=== PATIENT | male | born 1990 | race American Indian/Alaskan Native ===

== ENCOUNTER 2016-10-16 14:57 | Emergency (ER) | payer MEDICAID ==
[2016-10-16 15:05] VITALS: TEMP 98.2; O2SAT 98
--- NOTE | 2016-10-16 15:38 | ED PDOC ---
Arrival/HPI - General Chief Complaint: Flu-like Symptoms Time Seen by Provider: 10/16/16 15:02 Historian: Patient - History of Present Illness Narrative History of Present Illness (Text): 10/16/16 15:35 26yo male with PMhx of HIV present for evaluation. States he has been having intermittent yellow productive cough x 3weeks now. Reports malaise. states he is worried because he stopped taking his antiviral medications for 3-4month secondary to depression and financial issues. He states he plans to go back to his Doctor, but just came to the ED for evaluation. She denied fever, chills, nausea, vomiting, abdominal pain, sick contact, travel, chest pain, any other complaint. He does not know his CD4 count or viral load. Past Medical History - Provider Review Nursing Documentation Reviewed: Yes - Cardiac Hx Cardiac Disorders: No - Pulmonary Hx Respiratory Disorders: No - Neurological Hx Neurological Disorder: No - HEENT Hx HEENT Disorder: No - Renal Hx Renal Disorder: No - Endocrine/Metabolic Hx Endocrine Disorders: No - Integumentary Hx Dermatological Disorder: No - Musculoskeletal/Rheumatological Hx Musculoskeletal Disorders: No - Gastrointestinal Hx Gastrointestinal Disorders: No - Genitourinary/Gynecological Other/Comment: TESTICULAR SURGERY - Psychiatric Hx Psychophysiologic Disorder: No Hx Substance Use: No Family/Social History - Physician Review Nursing Documentation Reviewed: Yes Family/Social History: Unknown Family HX Smoking Status: Heavy Smoker > 10 Cigarettes Daily Hx Alcohol Use: No Hx Substance Use: No Allergies/Home Meds Allergies/Adverse Reactions: Allergies No Known Allergies Allergy (Verified 10/16/16 15:00) Review of Systems - Physician Review All systems were reviewed & negative as marked: Yes - Review of Systems Constitutional: Fatigue Eyes: Normal ENT: Normal Respiratory: Cough. absent: SOB, Sputum, Wheezing Cardiovascular: Normal Gastrointestinal: Normal Genitourinary Male: Normal Musculoskeletal: Normal Skin: Normal Neurological: Normal Endocrine: Normal Hemo/Lymphatic: Normal Psychiatric: Normal Physical Exam Vital Signs Reviewed: Yes Vital Signs Temp Pulse Resp BP Pulse Ox 10/16/16 15:04 98.2 F 75 16 121/79 98 Temperature: Afebrile Blood Pressure: Normal Pulse: Regular Respiratory Rate: Normal Appearance: Positive for: Well-Appearing, Non-Toxic, Comfortable Pain Distress: None Mental Status: Positive for: Alert and Oriented X 3 - Systems Exam Head: Present: Atraumatic, Normocephalic Pupils: Present: PERRL Extroacular Muscles: Present: EOMI Conjunctiva: Present: Normal Mouth: Present: Moist Mucous Membranes Neck: Present: Normal Range of Motion Respiratory/Chest: Present: Clear to Auscultation, Good Air Exchange. No: Respiratory Distress, Accessory Muscle Use, Wheezes, Decreased Breath Sounds, Rales, Retracting, Rhonchi Cardiovascular: Present: Regular Rate and Rhythm, Normal S1, S2. No: Murmurs Abdomen: Present: Normal Bowel Sounds. No: Tenderness, Distention, Peritoneal Signs Back: Present: Normal Inspection Upper Extremity: Present: Normal Inspection. No: Cyanosis, Edema Lower Extremity: Present: Normal Inspection. No: Edema Neurological: Present: GCS=15, CN II-XII Intact, Speech Normal Skin: Present: Warm, Dry, Normal Color. No: Rashes Psychiatric: Present: Alert, Oriented x 3, Normal Insight, Normal Concentration Medical Decision Making ED Course and Treatment: 10/16/16 15:39 Pt present to ED for stated history. He was hemodynamically stable, afebrile and comfortable in ED. Chest xray ordered. 10/16/16 17:22 CXR NAD Result was DW the pt. He was given Zpack and tessalon. Counselled on smoking cessation. TRT ED for any new or worsening symptoms Referred to Dr. Valdivia - RAD Interpretation Radiology Orders: 10/16/16 15:34 CHEST TWO VIEWS (PA/LAT) [RAD] Stat - Medication Orders Current Medication Orders: Azithromycin (Zithromax) 500 mg PO STAT STA PRN Reason: Protocol Stop: 10/16/16 17:22 Benzonatate (Tessalon Perles) 100 mg PO TID STA Stop: 10/16/16 17:21 Disposition/Present on Arrival - Present on Arrival Any Indicators Present on Arrival: No History of DVT/PE: No History of Uncontrolled Diabetes: No Urinary Catheter: No History of Decub. Ulcer: No History Surgical Site Infection Following: None - Disposition Have Diagnosis and Disposition been Completed?: Yes Diagnosis: Bronchitis Disposition: HOME/ ROUTINE Disposition Time: 17:25 Patient Plan: Discharge Condition: STABLE Discharge Instructions (ExitCare): Acute Bronchitis (ED) Additional Instructions: Follow up with infectious Doctor Return to ED for any new or worsening symptoms Prescriptions: Azithromycin [Zithromax] 250 mg PO DAILY #4 tab Benzonatate [Tessalon Perle] 100 mg PO TID #30 capsule Referrals: PCP,NO [Primary Care Provider] - Follow up with primary Kye Valdivia MD [Staff Provider] - Follow up with primary
--- NOTE | 2016-10-16 17:08 | RAD ---
HISTORY: cough COMPARISON: None available. TECHNIQUE: Chest PA and lateral FINDINGS: LUNGS: No focal consolidation. Please note that chest x-ray has limited sensitivity for the detection of pulmonary masses. PLEURA: No significant pleural effusion identified. No definite pneumothorax . CARDIOVASCULAR: The cardiomediastinal silhouette appears within normal limits of size. OSSEOUS STRUCTURES: No acute osseous abnormality identified. VISUALIZED UPPER ABDOMEN: Unremarkable. OTHER FINDINGS: None. IMPRESSION: No focal consolidation, significant pleural effusion, or definite pneumothorax identified.
[2016-10-16 17:26] VITALS: BP 118/75; PULSE 69; RESP 18
== END 2016-10-16 18:10 | disposition home or self-care (01) ==
LOC: MERGE 14:57 → ED 14:57
DX: J20.9 Acute bronchitis, unspecified (principal); F17.210 Nicotine dependence, cigarettes, uncomplicated

== ENCOUNTER 2018-07-07 10:57 | Emergency (ER) | payer MEDICAID, OTHER ==
[2018-07-07 11:04] VITALS: BMI 23.3
[2018-07-07 11:09] VITALS: TEMP 97.4
--- NOTE | 2018-07-07 12:55 | RAD ---
Date of service: 07/07/2018 PROCEDURE: Radiographs of the Lumbar Spine. HISTORY: s/p fall r/o fx COMPARISON: No prior. FINDINGS: BONES: There is bilateral spondylolysis at L5 with no significant spondylolisthesis. DISC SPACES: Unremarkable. OTHER FINDINGS: None. IMPRESSION: There is bilateral spondylolysis at L5 with no significant spondylolisthesis.
[2018-07-07] MEDS ORDERED: Nystatin 100,000 Units/ml Oral Susp 5 ml UD PO STA (13:05)
[2018-07-07 13:13] VITALS: BP 114/69; PULSE 80; RESP 17; O2SAT 100
--- NOTE | 2018-07-07 13:50 | ED PDOC ---
Arrival/HPI - General Chief Complaint: Back Pain Time Seen by Provider: 07/07/18 11:02 Historian: Patient - History of Present Illness Narrative History of Present Illness (Text): 07/07/18 13:51 A 28 year old male, whose past medical history includes HIV, presents to the emergency department complaining of lower back pain s/p slip and fall yesterday. Patient reports also complaining of sore throat for 2 weeks. Patient denies any head trauma, LOC, saddle anesthesia, any urinary symptoms, or any other complaints at this time. Also, patient mentions he currently takes heart medications. Denies taking any pain medications for relief. PMD: Dr. Owen Past Medical History - Provider Review Nursing Documentation Reviewed: Yes - Infectious Disease Hx of Infectious Diseases: None - Tetanus Immunization Tetanus Immunization: Unknown - Cardiac Hx Cardiac Disorders: No - Pulmonary Hx Respiratory Disorders: No - Neurological Hx Neurological Disorder: No - HEENT Hx HEENT Disorder: No - Renal Hx Renal Disorder: No - Endocrine/Metabolic Hx Endocrine Disorders: No - Hematological/Oncological Hx Blood Disorders: Yes - Integumentary Hx Dermatological Disorder: No - Musculoskeletal/Rheumatological Hx Musculoskeletal Disorders: No - Gastrointestinal Hx Gastrointestinal Disorders: No - Genitourinary/Gynecological Hx Sexually Transmitted Diseases: No (denies) - Psychiatric Hx Psychophysiologic Disorder: No Hx Substance Use: No - Surgical History Other/Comment: TESTICULAR SX - Anesthesia Hx Anesthesia: Yes Hx Anesthesia Reactions: No - Suicidal Assessment Feels Threatened In Home Enviroment: No Family/Social History - Physician Review Nursing Documentation Reviewed: Yes Family/Social History: No Known Family HX Smoking Status: Light Smoker < 10 Cigarettes Daily Hx Alcohol Use: No Hx Substance Use: No Substance used: Rakel Allergies/Home Meds Allergies/Adverse Reactions: Allergies No Known Allergies Allergy (Verified 05/08/17 13:28) Review of Systems - Physician Review All systems were reviewed & negative as marked: Yes - Review of Systems Constitutional: absent: Fevers, Night Sweats, Other (no head trauma) ENT: Sore Throat Musculoskeletal: Back Pain (lower back pain s/p slip and fall.) Physical Exam Vital Signs Reviewed: Yes Vital Signs Temp Pulse Resp BP Pulse Ox 07/07/18 13:13 80 17 114/69 100 07/07/18 11:08 97.4 F L 103 H 18 126/83 99 Temperature: Afebrile Blood Pressure: Normal Pulse: Regular Respiratory Rate: Normal Appearance: Positive for: Well-Appearing, Non-Toxic, Comfortable Pain Distress: None Mental Status: Positive for: Alert and Oriented X 3 - Systems Exam Head: Present: Atraumatic, Normocephalic Pupils: Present: PERRL Extroacular Muscles: Present: EOMI Conjunctiva: Present: Normal Mouth: Present: Moist Mucous Membranes Pharnyx: Present: Other (oral thrush to palet, tonsils, and uvula) Neck: Present: Normal Range of Motion Respiratory/Chest: Present: Clear to Auscultation, Good Air Exchange. No: Respiratory Distress, Accessory Muscle Use Cardiovascular: Present: Regular Rate and Rhythm, Normal S1, S2. No: Murmurs Abdomen: No: Tenderness, Distention, Peritoneal Signs Back: Present: Other (diffuse tenderness to lower back) Upper Extremity: Present: Normal Inspection. No: Cyanosis, Edema Lower Extremity: Present: Normal Inspection. No: Edema Neurological: Present: GCS=15, CN II-XII Intact, Speech Normal Skin: Present: Warm, Dry, Normal Color. No: Rashes Psychiatric: Present: Alert, Oriented x 3, Normal Insight, Normal Concentration Medical Decision Making ED Course and Treatment: 07/07/18 13:51 Impression: 28 year old lower back pain s/p slip and fall, and sore throat. Physical exa shows oral thrush to pallet, tonsils, and uvula; diffused lower back tenderness; no other acute findings on examinations. Plan: -- Lumbar Spinal X-Ray -- Reassess and disposition Prior Visits: Notes and results from previous visits were reviewed. Patient was last seen in the emergency department on 03/02/2018 for atraumatic right rib pain. Patient was discharged home. 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 Dictator: Peter Munson MD - RAD Interpretation Radiology Orders: 07/07/18 11:25 LS SPINE WITH OBL > 18 YRS OLD [RAD] Stat - Medication Orders Current Medication Orders: Discontinued Medications Nystatin (Nystatin Oral Susp) 5 ml PO STAT STA Stop: 07/07/18 13:06 Last Admin: 07/07/18 13:38 Dose: 5 ml - Scribe Statement The provider has reviewed the documentation as recorded by the Rui Herrera Provider Rui Attestation: All medical record entries made by the Goodibtara were at my direction and personally dictated by me. I have reviewed the chart and agree that the record accurately reflects my personal performance of the history, physical exam, medical decision making, and the department course for this patient. I have also personally directed, reviewed, and agree with the discharge instructions and disposition. Disposition/Present on Arrival - Present on Arrival Any Indicators Present on Arrival: No History of DVT/PE: No History of Uncontrolled Diabetes: No Urinary Catheter: No History of Decub. Ulcer: No History Surgical Site Infection Following: None - Disposition Have Diagnosis and Disposition been Completed?: Yes Diagnosis: Low back pain, Oral thrush Disposition: HOME/ ROUTINE Disposition Time: 12:30 Condition: GOOD Discharge Instructions (ExitCare): Low Back Pain (DC), Thrush (DC) Additional Instructions: KARISSA OLVERA, thank you for letting us take care of you today. The emergency medical care you received today was directed at your acute symptoms. If you were prescribed any medication, please fill it and take as directed. It may take several days for your symptoms to resolve. Return to the Emergency Department if your symptoms worsen, do not improve, or if you have any other problems. Please contact your doctor or call one of the physicians/clinics you have been referred to that are listed on the Patient Visit Information form that is included in your discharge packet. Bring any paperwork you were given at discharge with you along with any medications you are taking to your follow up visit. Our treatment cannot replace ongoing medical care by a primary care provider outside of the emergency department. Thank you for allowing the [facility] team to be part of your care today. Follow up with your primary care doctor in 2-3 days for re-evaluation and further management. Prescriptions: Ibuprofen [Motrin] 600 mg PO Q6 PRN #20 tab PRN Reason: Pain, Moderate (4-7) Nystatin [Nystatin Oral Susp] 5 ml PO QID #60 ml Referrals: Earline Owen DO [Primary Care Provider] - Follow up with primary Forms: Zang (Kazakh)
== END 2018-07-07 13:42 | disposition home or self-care (01) ==
LOC: ED 10:57
DX: M54.5 Low back pain (principal); B37.0 Candidal stomatitis; F17.210 Nicotine dependence, cigarettes, uncomplicated